=== PATIENT | female | born 1975 | race Two or more races ===

== ENCOUNTER 2017-10-26 14:35 | Outpatient (CLI) | payer OTHER | END 2017-10-26 15:00 | disposition home or self-care (01) | LOC: MAMO-SONO 14:35 | DX: Z12.31 Encounter for screening mammogram for malignant neoplasm of breast (principal); Z87.898 Personal history of other specified conditions; N64.89 Other specified disorders of breast ==

== ENCOUNTER 2018-01-25 14:01 | Outpatient (CLI) | payer OTHER | END 2018-01-25 14:09 | disposition home or self-care (01) | LOC: MAMO-SONO 14:01 | DX: D24.1 Benign neoplasm of right breast (principal); N64.89 Other specified disorders of breast ==

== ENCOUNTER 2018-10-22 10:57 | Outpatient (CLI) | payer OTHER ==
[~2018-10-22] VITALS: Ht 165.1 cm; Wt 76.2 kg
== END 2018-10-22 11:15 | disposition home or self-care (01) ==
LOC: OFIC 805 10:57
DX: H93.12 Tinnitus, left ear (principal); R49.0 Dysphonia

== ENCOUNTER → 2018-10-22 | Outpatient (CLI) | payer OTHER | END | disposition home or self-care (01) | LOC: NUCLEAR 10:11 | DX: M05.29 Rheumatoid vasculitis with rheumatoid arthritis of multiple sites (principal) | CPT/HCPCS: 78306; 78315; A9503 ==

== ENCOUNTER → 2019-01-17 | Outpatient (CLI) | payer OTHER | END | disposition home or self-care (01) | LOC: MAMO-SONO 15:12 | DX: N64.4 Mastodynia (principal); Z12.31 Encounter for screening mammogram for malignant neoplasm of breast; Z87.898 Personal history of other specified conditions ==

== ENCOUNTER 2024-08-15 05:45 | Day surgery (SDC) | payer OTHER ==
[2024-08-13 09:26] VITALS: BP 127/85
[2024-08-13 09:54] LABS: HEMATOCRIT 31.6 % (36.0-45.00); HEMOGLOBIN 10.2 g/dL (12.0-15.00); MEAN CELL VOLUME 78.8 fL (80.00-100.00); MEAN CORPUSCULAR HEMOGLOBIN 25.4 pg (27.00-32.0); MEAN CORPUSCULAR HGB CONC 32.2 g/dl (32.0-36.0); PLATELET COUNT 367 K/uL (150-450); RED BLOOD COUNT 4.01 M/uL (4.00-6.00); RED CELL DISTRIBUTION WIDTH 16.7 % (11.5-14.5)
[2024-08-13 09:55] LABS: PH,URINE 5.5 (5.0-8.0); URINE APPEARANCE Clear; URINE BILIRRUBIN Negative (NEGATIVE); URINE BLOOD Negative; URINE COLOR Yellow; URINE GLUCOSE Negative (NEGATIVE); URINE KETONE Negative (NEGATIVE); URINE LEUKOCYTE Negative; URINE NITRATE Negative; URINE PROTEIN Negative (NEGATIVE); URINE UROBILINOGEN 0.2 E.U./dl
[2024-08-13 09:59] LABS: URINE BACTERIA 4542.1 uL (0.0-1933); URINE EPITHELIAL CELLS 35.1 uL (0.0-38.8); URINE RBC 14.7 uL (0.0-20.8); URINE WBC 9.4 uL (0.0-23.2)
[2024-08-13 10:23] LABS: PARTIAL THROMBOPLASTIN TIME 27.1 SECONDS (22.0-34.0); PROTHROMBIN TIME 10.9 SECONDS (9.0-11.5)
[2024-08-13 10:27] LABS: URINE CAST 0.14 uL (0.0-1.40)
[2024-08-13 11:08] LABS: ALBUMIN 3.6 gm/dL (3.4-5.0); BILIRUBIN TOTAL 0.34 mg/dL (0.3-1.2); CALCIUM 8.8 mg/dL (8.5-10.1); CREATININE SERUM 0.57 mg/dL (0.55-1.02); GFR 113.69; POTASSIUM 4.74 mEq/L (3.5-5.1); TOTAL PROTEIN 7.6 gm/dL (6.4-8.2)
[~2024-08-15] VITALS: Ht 160 cm; Wt 76.2 kg
[2024-08-15] MEDS ORDERED: DEXAMETHASONE SODIUM PHOSPHATE 4 MG/ML VIAL IM ONE (10:15)
[2024-08-15] MEDS ORDERED: MORPHINE SULFATE 4 MG/ML VIAL IV ONE ×2 (11:15→12:15)
== END 2024-08-15 15:10 | disposition home or self-care (01) ==
LOC: CIR.AMB 05:45 → EDSTATUS 07:30 → SURH 07:30 → CIR.AMB 07:30
PROVIDERS: ATTEND Surgery
DX: C73 Malignant neoplasm of thyroid gland (principal); J45.909 Unspecified asthma, uncomplicated